=== PATIENT | female | born 1945 | race Native Hawaiian/Other Pacific Islander ===

== ENCOUNTER 2019-07-19 09:51 | Emergency (ER) | payer OTHER ==
[~2019-07-19] VITALS: Ht 162.6 cm; Wt 65.8 kg
[2019-07-19 09:58] VITALS: BP 136/66; TEMP 99.9
== END 2019-07-19 11:22 | disposition home or self-care (01) ==
LOC: ED 09:51
DX: S09.8XXA Other specified injuries of head, initial encounter (principal); Z91.81 History of falling; W01.198A Fall on same level from slipping, tripping and stumbling with subsequent striking against other object, initial encounter; Y92.098 Other place in other non-institutional residence as the place of occurrence of the external cause
CPT/HCPCS: 99283

== ENCOUNTER 2019-09-13 14:32 | Outpatient (CLI) | payer OTHER ==
[2019-09-13 15:20] LABS: PLATELET COUNT 219 K/uL (152-353)
[2019-09-13 15:41] LABS: POTASSIUM 4.2 mmol/L (3.6-5.2)
== END 2019-09-13 19:16 | disposition home or self-care (01) ==
LOC: LAB 14:32
PROVIDERS: Nurse Practitioner Family
DX: Z00.00 Encounter for general adult medical examination without abnormal findings (principal); F41.8 Other specified anxiety disorders; I10 Essential (primary) hypertension; M25.551 Pain in right hip; C50.919 Malignant neoplasm of unspecified site of unspecified female breast; G25.81 Restless legs syndrome; K21.9 Gastro-esophageal reflux disease without esophagitis; G89.29 Other chronic pain; Z79.899 Other long term (current) drug therapy; E53.8 Deficiency of other specified B group vitamins
CPT/HCPCS: 80053; 80061; 82306; 82607; 83036; 84439; 84443; 85027

== ENCOUNTER 2021-12-20 13:17 | Outpatient (CLI) | payer OTHER | END 2021-12-20 19:04 | LOC: RAD 13:17 | PROVIDERS: ATTEND Registered Nurse | DX: R06.09 Other forms of dyspnea (principal) ==